=== PATIENT | female | born 1985 | race African-American/Black ===

== ENCOUNTER 2020-03-18 14:34 | Emergency (ER) | payer MEDICAID ==
[~2020-03-18] VITALS: Ht 162.6 cm; Wt 69.0 kg
[2020-03-18] MEDS ORDERED: DIPHENHYDRAMINE 50MG CAPSULE PO ONE (15:30)
[2020-03-18] MEDS ORDERED: SODIUM CHLORIDE 0.9% 1,000 ML IV ONE (15:30)
[2020-03-18] MEDS ORDERED: PROCHLORPERAZINE 10MG/2ML VIAL IV ONE (15:30)
[2020-03-18] MEDS ORDERED: ACETAMINOPHEN 325MG TABLET PO ONE (15:30)
[2020-03-18 15:37] LABS: CLARITY URINE CLOUDY (CLEAR); COLOR URINE YELLOW (YELLOW); KETONES URINE TRACE (NEGATIVE); LEUKOCYTE ESTERASE URINE 1+ (NEGATIVE); NITRITE URINE NEGATIVE (NEGATIVE); OCCULT BLOOD URINE NEGATIVE (NEGATIVE); PROTEIN URINE NEGATIVE (NEGATIVE); SPECIFIC GRAVITY URINE 1.025 (1.005-1.030)
[2020-03-18 15:55] LABS: HCG SCREEN NEGATIVE
[2020-03-18 16:18] VITALS: BP 115/56
== END 2020-03-18 16:50 | disposition home or self-care (01) ==
LOC: ER 14:34
DX: G43.909 Migraine, unspecified, not intractable, without status migrainosus (principal); J45.909 Unspecified asthma, uncomplicated
CPT/HCPCS: 81003; 81025; 84703; 96374; 99283; J0780; J7030; Q0163